=== PATIENT | female | born 1985 | race Two or more races ===

== ENCOUNTER 2016-04-18 14:59 | Emergency (ER) | payer OTHER ==
[2016-04-18 15:29] VITALS: RESP 16
[2016-04-18] MEDS ORDERED: NS 1,000 ML IV ONE (15:40)
--- NOTE | 2016-04-18 15:59 | EDPHY ---
H & P Stated Complaint: Hard to swallow x 2 weeks;seen at [facility],referred to GI Time Seen by Provider: 04/18/16 15:13 HPI/ROS: CHIEF COMPLAINT: Dysphagia x2 weeks HISTORY OF PRESENT ILLNESS: 30-year-old female generally healthy complaining of nonprogressive dysphagia for the past 2 weeks, currently asymptomatic. Symptoms generally occur in the evening and are not positional. She has problems initiating his swallow, does not feel food or liquid getting stuck. She will sometimes choke on food. She will have difficulty swelling both solids and liquids. She has had no loss of appetite, weight loss, nausea, vomiting, regurgitation of food particles, sour taste in mouth, heartburn, hematemesis , diplopia, slurred speech, facial droop, gait instability,. No history of diabetes, scleroderma, neuromuscular disease such as myasthenia gravis, multiple sclerosis. She was seen at [facility] Emergency Department last evening states that no diagnostic studies were performed and she was prescribed Prilosec and told to follow up with GI. States that she called GI referral and they requested direct referral information and had next appointment available for some time. PRIMARY CARE PROVIDER:none REVIEW OF SYSTEMS: A ten point review of systems was performed and is negative with the exception of the items mentioned in the HPI PAST MEDICAL & SURGICAL HISTORY: No pertinent medical or surgical history SOCIAL HISTORY:nonsmoker FAMILY HISTORY: No family history of neuromuscular disease PHYSICAL EXAM (Prior to examination, patient consented to physical exam, hands were washed and my usual and customary physical exam procedures followed) 1) GENERAL: Well-developed, well-nourished, alert and oriented. Appears to be in no acute distress.Speaking with normal voice. 2) HEAD: Normocephalic, atraumatic 3) HEENT: Pupils equal, round, reactive to light bilaterally. Sclera anicteric. Nasopharynx, oropharynx, clear, no lesions. Moist mucous membranes. No tonsillar enlargement. No tonsillar exudate. No gross abnormality on visualization. Floor of mouth soft. She is swallowing her secretions Ears bilaterally with. normal tympanic membranes. 4) NECK: Full range of motion, no meningeal signs. Submandibular and submental spaces are soft. No induration. No erythema. 5) LUNGS: Clear auscultation bilaterally, no wheezes, no rhonchi, no retractions. 6) HEART: Regular rate and rhythm, no murmur, no heave, no gallop. 7) ABDOMEN: No guarding, no rebound, no focal tenderness, negative McBurney's, negative Mascorro's, negative Rovsing's, negative peritoneal sign, 8) MUSCULOSKELETAL: Moving all extremities, no focal areas of tenderness, no obvious trauma. No peripheral edema or discoloration. 9) BACK: No CVA tenderness, no midline vertebral tenderness, no fluctuance, no step-off, no obvious trauma, no visual or palpable abnormality. 10) SKIN: No rash, no petechiae. 11) NEURO: Awake, alert, and oriented to person, place and time. Answers questions appropriately. There were no obvious focal neurologic abnormalities. No cerebellar dysfunction. Normal steady gait. Upper and lower extremities bilaterally with strength 5 / 5, reflexes 2+. DIFFERENTIAL DIAGNOSIS: In no particular order including but not limited to intraluminal causes, intrinsic causes such as esophagitis, esophageal web and ring, malignancy, achalasia, Sjogren syndrome, motility disorder, neuromuscular disorder, neurologic disease - Personal History LMP (Females 10-55): 8-14 Days Ago Current Tetanus Diphtheria and Acellular Pertussis (TDAP): Yes - Medical/Surgical History Other PMH: neg per pt - Social History Smoking Status: Never smoked Constitutional: Initial Vital Signs Temperature (C) 37 C 04/18/16 15:00 Heart Rate 93 04/18/16 15:00 Respiratory Rate 18 04/18/16 15:00 Blood Pressure 119/79 04/18/16 15:00 O2 Sat (%) 94 04/18/16 15:00 O2 Delivery Mode Room Air Allergies/Adverse Reactions: No Known Allergies Allergy (Unverified 04/18/16 15:04) Home Medications: Medication Instructions Recorded Omeprazole Magnesium [Prilosec Otc] 20 mg PO 04/18/16 Medical Decision Making ED Course/Re-evaluation: I asked patient to swallow some water to see what her reaction and to watch her swallow, and she adamantly would not attempts to swallow any fluid. I did water swallow her secretions and she had no gross abnormality upon swallowing Her secretions She is swallowing her secretions when I examine her but will not attempt any oral fluids or food challenge. She requests IV fluids which have been provided to her. Clinically I do not think the patient is dehydrated. Doubt CVA. Patient was also seen exam by Dr. Dave Villa. I recommended patient follow up with Gastroenterology as before, however also recommend she follow up with ear nose and throat and also informed her that she may necessitate follow up with Neurology. Also recommend she establish primary care. The child welfare caseworker has assisted with this process. I consulted via telephone with on-call ENT Dr. Ish Sahu at 4:24 p.m. who agrees to see the patient on an outpatient basis, patient has an appointment at 8:00 a.m. tomorrow , 04/19/2016 - Data Points Laboratory Results: Laboratory Results 04/18/16 16:15 04/18/16 04/18/16 04/18/16 16:15 16:15 16:15 WBC 8.50 10^3/uL 10^3/uL (3.80-9.50) RBC 5.20 10^6/uL 10^6/uL (4.18-5.33) Hgb 15.5 g/dL g/dL (12.6-16.3) Hct 45.2 % % (38.0-47.0) MCV 86.9 fL fL (81.5-99.8) MCH 29.8 pg pg (27.9-34.1) MCHC 34.3 g/dL g/dL (32.4-36.7) RDW 12.7 % % (11.5-15.2) Plt Count 280 10^3/uL 10^3/uL (150-400) MPV 9.4 fL fL (8.7-11.7) Neut % (Auto) 76.4 % H % (39.3-74.2) Lymph % (Auto) 16.5 % % (15.0-45.0) [place] % (Auto) 6.4 % % (4.5-13.0) Eos % (Auto) 0.1 % L % (0.6-7.6) Baso % (Auto) 0.4 % % (0.3-1.7) Nucleat RBC Rel Count 0.0 % % (0.0-0.2) Absolute Neuts (auto) 6.50 10^3/uL 10^3/uL (1.70-6.50) Absolute Lymphs (auto) 1.40 10^3/uL 10^3/uL (1.00-3.00) Absolute Monos (auto) 0.54 10^3/uL 10^3/uL (0.30-0.80) Absolute Eos (auto) 0.01 10^3/uL L 10^3/uL (0.03-0.40) Absolute Basos (auto) 0.03 10^3/uL 10^3/uL (0.02-0.10) Absolute Nucleated RBC 0.00 10^3/uL 10^3/uL (0-0.01) Immature Gran % 0.2 % % (0.0-1.1) Immature Gran # 0.02 10^3/uL 10^3/uL (0.00-0.10) Sodium Pending Potassium Pending Chloride Pending Carbon Dioxide Pending Anion Gap Pending BUN Pending Creatinine Pending Estimated GFR Pending Glucose Pending Calcium Pending Beta HCG, Qual Pending Medications Given: Discontinued Medications Sodium Chloride (Ns) 1,000 mls @ 0 mls/hr IV ONCE ONE PRN Reason: Wide Open Stop: 04/18/16 15:41 Last Admin: 04/18/16 16:16 Dose: 1,000 mls Departure - Departure Disposition: Home, Routine, Self-Care Clinical Impression: Dysphagia Qualifiers: Dysphagia type: unspecified Qualified Code(s): R13.10 - Dysphagia, unspecified Condition: Good Instructions: Dysphagia (ED) Additional Instructions: Call 911 if you are choking, if you develop shortness of breath, sore throat, or any other symptoms that concern you. Continue taking your Prilosec as directed. Crystal, We have made you an appointment with ( Head and neck specialist) at the [facility] office on Sunday morning at 8AM. The address is [address] [place] [address], [address]. The phone number is . Referrals: Ish Sahu MD [Medical Doctor] - 04/19/16 8:00 am ( Dr Sahu is an ear nose throat doctor)
[2016-04-18 16:23] LABS: % IMMATURE GRANULYOCYTES 0.2 % (0.0-1.1); ABSOLUTE IMMATURE GRANULOCYTES 0.02 10^3/uL (0.00-0.10); ADD DIFF? NO; ADD MORPH? NO; ADD SCAN? NO; ATYPICAL LYMPHOCYTE FLAG 10 (0-99); FRAGMENT RBC FLAG 0 (0-99); HEMATOCRIT 45.2 % (38.0-47.0); HEMOGLOBIN 15.5 g/dL (12.6-16.3); LEFT SHIFT FLG 0 (0-99); LIPEMIA HEMOLYSIS FLAG 90 (0-99); MEAN CELL HEMOGLOBIN 29.8 pg (27.9-34.1); MEAN CELL HEMOGLOBIN CONCENTR. 34.3 g/dL (32.4-36.7); MEAN CELL VOLUME 86.9 fL (81.5-99.8); MEAN PLATELET VOLUME 9.4 fL (8.7-11.7); PLATELET CLUMPS FLAG 0 (0-99); PLATELET COUNT 280 10^3/uL (150-400); RED CELL DISTRIBUTION WIDTH 12.7 % (11.5-15.2)
[2016-04-18 16:31] LABS: ANION GAP 13 mEq/L (8-16); CALCIUM 10.4 mg/dL (8.5-10.4); CARBON DIOXIDE 22 mEq/l (22-31); CHLORIDE 106 mEq/L (97-110); CREATININE 0.8 mg/dL (0.6-1.0); GLOMERULAR FILTRATION RATE > 60; GLUCOSE 100 mg/dL (70-100); POTASSIUM 4.1 mEq/L (3.5-5.2); SODIUM 141 mEq/L (134-144)
[2016-04-18 17:01] VITALS: BP 114/80; PULSE 84; TEMP 98.2; O2SAT 96
== END 2016-04-18 17:01 | disposition home or self-care (01) ==
DX: R13.10 Dysphagia, unspecified (principal)